=== PATIENT | male | born 2005 | race Caucasian/White ===

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

== ENCOUNTER 2023-03-15 07:16 | Emergency (ER) | payer MEDICAID ==
[~2023-03-15] VITALS: Ht 165.1 cm; Wt 65.2 kg
[2023-03-15 07:18] VITALS: TEMP 97.8
--- NOTE | 2023-03-15 09:22 | NUR ---
thumb spica splint placed good csm noted
[2023-03-15 10:32] VITALS: BP 132/95; PULSE 73; RESP 14; O2SAT 99
== END 2023-03-15 10:35 | disposition home or self-care (01) ==
LOC: ER 07:17
DX: M79.601 Pain in right arm (principal); R20.0 Anesthesia of skin
CPT/HCPCS: 29125; 73100; 73130; 99284; A4565